=== PATIENT | male | born 1965 | race Caucasian/White ===

== ENCOUNTER 2023-10-10 07:44 | Outpatient (RCR) | payer OTHER, SELFPAY | END 2023-10-10 23:59 | disposition home or self-care (01) | LOC: CRHB 07:44 | PROVIDERS: ATTENDING PHYSICIAN Internal Medicine Cardiovascular Disease; FAMILY PHYSICIAN Family Medicine | DX: Z95.4 Presence of other heart-valve replacement (principal) | CPT/HCPCS: 93798 ==

== ENCOUNTER 2024-01-26 06:41 | Day surgery (SDC) | payer OTHER, SELFPAY ==
[2024-01-13 06:37] VITALS: BMI 30.7
[2024-01-13 09:04] LABS: Hematocrit 40.9 % (39.0-52.0); Hemoglobin 13.3 g/dL (13.0-18.0); Mean Corp Hgb Conc. 32.5 g/dL (33.0-37.0); Mean Corpuscular Hgb 28.6 pg (27.0-31.0); Mean Platelet Volume 10.8 fL (7.4-10.4); Platelet Count 180 10^3/uL (130-400); Red Blood Cell Count 4.65 10^6/uL (4.70-6.10); Red Cell Dist. Width 13.5 % (11.5-14.5); White Blood Cell Count 5.5 10^3/uL (4.8-10.8)
[2024-01-13 09:22] LABS: Blood Urea Nitrogen 28 mg/dl (9-20); Carbon Dioxide 27 mmol/L (22-30); Chloride 105 mmol/L (98-107); Estimated Creatinine Clearance 100 ml/min; Glucose 91 mg/dl (70-99); Potassium 4.9 mmol/L (3.5-5.1); Sodium 141 mmol/L (135-145); eGFR > 60.00
[2024-01-26] VITALS (9 sets, daily range): BP systolic 120–150; BP diastolic 71–99; BMI 30.7
--- NOTE | 2024-01-26 07:25 | HP.FOC2 ---
Focused History & Physical
Chief Complaint
HPI:
Chief Complaint: Umbilical hernia
HPI / Indication for Planned Procedure: Patient is a 58-year-old male with a longstanding history of swelling in his umbilical region. It has been progressively and slowly enlarging over time. He has occasional discomfort in the area of his
umbilical hernia and often manually reduces it when it is uncomfortable or bothersome for him. Past abdominal surgical history notable for bilateral inguinal herniorrhaphy as a child.
He has had relatively recent CT imaging identifying a 3.5 x 3.5 cm fat-containing umbilical hernia
Relevant Past Medical History: Other (History of anemia, MAIK, obesity, glucose intolerance, hyperlipidemia, hypertension, mitral valve prolapse)
Relevant Social History: Negative
Relevant Family History: Negative
Relevant Past Surgical History: Positive for (Bilateral inguinal herniorrhaphy as a child, tonsillectomy, right minithoracotomy with mitral valve repair in 2022)
Review of Systems
Review of Pertinent Systems: All Systems Negative
Medication
See Medication form for detailed medications: Yes
Medication List (including Herbals & OTC):
cholecalciferol (vitamin D3) 125 mcg (5,000 unit) tablet (Vitamin D3) 125 mcg PO DAILY Supplement 06/13/23
clobetasol 0.05 % topical cream 1 applic topical DAILY PRN rash on hands 06/13/23
rosuvastatin 20 mg tablet 20 mg PO DAILY High Cholesterol 06/13/23
aspirin 81 mg chewable tablet (Children's Aspirin) 81 mg PO DAILY Heart disease/condition #30 tabs 08/31/23
metoprolol succinate 25 mg tablet,extended release 24 hr 12.5 mg (1/2 x 25 mg) PO DAILY Heart disease/condition #30 tabs 08/31/23
Medications Reviewed: Yes
Allergies and Reactions
Patient has Allergies: No
Noted Allergies and Reactions:
Allergy/AdvReac Type Severity Reaction Status Date / Time
No Known Allergies Allergy Verified 01/20/24 08:57
Pertinent Physical Exam
All Other Systems: Negative
Head/Neck: Normal
Lungs: Normal
Heart: Normal
Abdomen: Other (Soft, reducible, large umbilical hernia fascial defect likely approximately 4 cm)
Extremities: Normal
Neurological: Normal
Diagnosis / Assessment
58-year-old male presenting for scheduled operative correction of symptomatic umbilical hernia
Plan / Procedure
Robotic assisted laparoscopic repair umbilical hernia with mesh
Anesthesia/Sedation to be done by Anesthesia Provider: Yes
[2024-01-26] MEDS: TYLENOL 1000 MG PO (11:54)
--- NOTE | 2024-01-26 12:01 | W.SUR.PREOP ---
Pre-Operative Surgical Note
-
I have examined this patient prior to the performance of the scheduled procedure.
The patient's condition is unchanged from the time of the current History and
Physical and the patient is able to undergo the scheduled procedure.
[2024-01-26] MEDS: NORMOSOL-R 1000 IV (12:05)
--- NOTE | 2024-01-26 15:37 | W.IMMPOSTOP ---
Addendum entered and electronically signed by Sotero Stinson MD 01/26/24 15:53:
#[id number]
Original Note:
Surgical Immed Post Op Note
-
Primary Surgeon: Milad
Assisting Surgeon: Senait Joya PA-c
Pre-op Diagnosis: Umbilical hernia
Post-op Diagnosis: Umbilical hernia; 4.5cm x 2.5 cm
Procedure Performed: Robotic assisted laparoscopic eTEP retrorectus mesh repair umbilical hernia; soft mesh 15 x 15 cm
Anesthesia Type: GETA +0.25% Marcaine
Specimen / Cultures: None
Estimated Blood Loss: 12 mL
Complications: None immediate
Operative Findings: Left-sided eTEP retrorectus access. Large, reducible umbilical hernia. 4.5 cm maximal horizontal length by 2.5 cm vertical length fascial defect. Hernia sac and contents completely reduced. Retrorectus repair. Peritoneal
entry at the hernia sac. No visceral contents. Small amount of omental adhesions to the hernia sac which were left in place. Closure of fascial defect with 0 PDS strata fix. 15 x 15 cm Bard soft mesh. Peritoneal closure with 2-0 PDS STRATAFIX.
The assistance of Senait Joya PA-c was required due to the complexity of the procedure. During the procedure Senait Joya PA-c assisted with retraction, exchanges of robotic instrumentation, suture material and mesh, and closure of the incision
sites.
== END 2024-01-26 17:33 | disposition home or self-care (01) ==
LOC: SDS 06:41
PROVIDERS: ATTENDING PHYSICIAN Surgery; FAMILY PHYSICIAN Internal Medicine
DX: K42.9 Umbilical hernia without obstruction or gangrene (principal)
CPT/HCPCS: 49593; 36415; 80048; 85027; 93005; C1781

== ENCOUNTER 2024-10-22 06:34 | Day surgery (SDC) | payer OTHER, SELFPAY | END 2024-10-22 08:59 | disposition home or self-care (01) | LOC: GI 06:34 | PROVIDERS: ATTENDING PHYSICIAN Student in an Organized Health Care Education/Training Program | DX: Z12.11 Encounter for screening for malignant neoplasm of colon (principal); K64.8 Other hemorrhoids; D12.2 Benign neoplasm of ascending colon; D12.3 Benign neoplasm of transverse colon; K63.5 Polyp of colon; K57.30 Diverticulosis of large intestine without perforation or abscess without bleeding; K64.4 Residual hemorrhoidal skin tags | CPT/HCPCS: 45385; 88305 ==